=== PATIENT | female | born 1950 | race Asian ===

== ENCOUNTER 2017-03-07 17:49 | Emergency (ER) | payer BC ==
[~2017-03-07] VITALS: Ht 167.6 cm; Wt 163.3 kg
[2017-03-07 19:34] LABS: PLATELET COUNT 386 K/uL (152-353)
[2017-03-07 19:37] LABS: POTASSIUM 3.6 mmol/L (3.6-5.2); SODIUM 135 mmol/L (136-145)
[2017-03-07 23:18] VITALS: BP 173/84; TEMP 98.4
== END 2017-03-07 23:45 | disposition home or self-care (01) ==
LOC: ED 17:49
DX: R10.11 Right upper quadrant pain (principal)
CPT/HCPCS: 36415; 80053; 85027; 96374; 96375; 99284; J1885; J2405

== ENCOUNTER 2017-10-31 15:11 | Outpatient (CLI) | payer OTHER | END 2017-10-31 21:26 | disposition home or self-care (01) | LOC: RAD 15:11 | DX: R06.02 Shortness of breath (principal) ==

== ENCOUNTER 2017-11-27 08:58 | Outpatient (CLI) | payer OTHER | END 2017-11-27 21:31 | disposition home or self-care (01) | LOC: CT 08:58 | DX: R93.8 Abnormal findings on diagnostic imaging of other specified body structures (principal) | CPT/HCPCS: 36415; 82565; 84520; Q9963 ==

== ENCOUNTER 2019-04-13 11:37 | Outpatient (CLI) | payer OTHER ==
[2019-04-13 12:12] LABS: POTASSIUM 3.6 mmol/L (3.6-5.2)
[2019-04-13 13:03] LABS: PLATELET COUNT 407 K/uL (152-353)
== END 2019-04-13 19:35 | disposition home or self-care (01) ==
LOC: LABW 11:37
PROVIDERS: Family Medicine
DX: I10 Essential (primary) hypertension (principal); R60.0 Localized edema; R53.83 Other fatigue; E78.2 Mixed hyperlipidemia; E55.9 Vitamin D deficiency, unspecified
CPT/HCPCS: 36415; 80053; 80061; 82306; 83735; 84439; 84443; 85027; 86376

== ENCOUNTER 2019-08-26 12:32 | Outpatient (CLI) | payer OTHER ==
[2019-08-26 12:55] LABS: PLATELET COUNT 370 K/uL (152-353)
[2019-08-26 13:06] LABS: POTASSIUM 4.1 mmol/L (3.6-5.2)
== END 2019-08-26 19:18 | disposition home or self-care (01) ==
LOC: LAB 12:32
PROVIDERS: Family Medicine
DX: I10 Essential (primary) hypertension (principal); E78.2 Mixed hyperlipidemia; E55.9 Vitamin D deficiency, unspecified; I73.89 Other specified peripheral vascular diseases; R60.0 Localized edema
CPT/HCPCS: 80053; 80061; 82306; 83735; 85027

== ENCOUNTER 2019-12-08 09:04 | Outpatient (CLI) | payer OTHER ==
[2019-12-08 09:45] LABS: PLATELET COUNT 357 K/uL (152-353)
[2019-12-08 09:54] LABS: POTASSIUM 3.8 mmol/L (3.6-5.2)
== END 2019-12-08 20:23 | disposition home or self-care (01) ==
LOC: LAB 09:04
PROVIDERS: Family Medicine
DX: I10 Essential (primary) hypertension (principal); E78.2 Mixed hyperlipidemia; R60.0 Localized edema; R06.02 Shortness of breath; E55.9 Vitamin D deficiency, unspecified; R53.83 Other fatigue
CPT/HCPCS: 80053; 80061; 82306; 83735; 83880; 85027

== ENCOUNTER 2020-03-08 19:41 | Emergency (ER) | payer OTHER ==
[~2020-03-08] VITALS: Ht 162.6 cm; Wt 172.4 kg
[2020-03-08 20:36] LABS: PLATELET COUNT 397 K/uL (152-353)
[2020-03-08 20:40] LABS: POTASSIUM 4.3 mmol/L (3.6-5.2)
[2020-03-08 22:15] VITALS: BP 131/54; TEMP 98.2
== END 2020-03-08 22:15 | disposition home or self-care (01) ==
LOC: ED 19:41
DX: R10.84 Generalized abdominal pain (principal)
CPT/HCPCS: 80053; 81000; 82150; 82272; 83690; 85027; 86318; 99283; 99284

== ENCOUNTER 2020-06-06 14:14 | Outpatient (CLI) | payer OTHER | END 2020-06-06 20:57 | disposition home or self-care (01) | LOC: RAD 14:14 | PROVIDERS: ATTEND Internal Medicine Pulmonary Disease | DX: I50.9 Heart failure, unspecified (principal) ==

== ENCOUNTER 2020-10-28 09:50 | Emergency (ER) | payer OTHER ==
[~2020-10-28] VITALS: Ht 157.5 cm; Wt 144.7 kg
[2020-10-28 11:07] LABS: POTASSIUM 3.7 mmol/L (3.6-5.2)
[2020-10-28 11:08] LABS: PLATELET COUNT 351 K/uL (152-353)
[2020-10-28 11:37] LABS: PARTIAL THROMBOPLASTIN TIME 25.2 SECONDS (24.5-33.6)
[2020-10-28 12:15] VITALS: BP 151/89; TEMP 97.8
== END 2020-10-28 12:15 | disposition home or self-care (01) ==
LOC: ED 09:50
PROVIDERS: Emergency Medicine
DX: N93.8 Other specified abnormal uterine and vaginal bleeding (principal); I10 Essential (primary) hypertension; I50.9 Heart failure, unspecified
CPT/HCPCS: 80048; 85027; 85610; 85730; 99284

== ENCOUNTER 2021-01-13 09:43 | Outpatient (CLI) | payer OTHER ==
[2021-01-13 10:28] LABS: PLATELET COUNT 350 K/uL (152-353)
[2021-01-13 10:29] LABS: POTASSIUM 2.9 mmol/L (3.6-5.2)
== END 2021-01-13 21:02 | disposition home or self-care (01) ==
LOC: LABW 09:43
PROVIDERS: ATTEND Student in an Organized Health Care Education/Training Program
DX: N85.02 Endometrial intraepithelial neoplasia [EIN] (principal)
CPT/HCPCS: 36415; 80048; 85027

== ENCOUNTER 2021-01-28 15:56 | Inpatient (IN) | payer OTHER ==
[~2021-01-28] VITALS: Ht 157.5 cm; Wt 129.3 kg
[2021-01-28 15:59] VITALS: BP 148/78; TEMP 97
[2021-01-28 16:41] LABS: PLATELET COUNT 427 K/uL (152-353)
[2021-01-28 16:50] LABS: PARTIAL THROMBOPLASTIN TIME 28.1 SECONDS (24.5-33.6)
[2021-01-28 19:18] VITALS: BP 114/63; TEMP 97.6; Ht 157.5 cm; Wt 129.3 kg
[2021-01-28 19:59] VITALS: BP 102/55; TEMP 98.1
[2021-01-29] VITALS: BP 100/61; TEMP 98.6
[2021-01-29 04:11] VITALS: BP 93/53; TEMP 98.6
[2021-01-29 07:59] VITALS: BP 100/58; TEMP 98.2
[2021-01-29 11:59] VITALS: BP 120/67; TEMP 98.8
[2021-01-29 16:00] VITALS: BP 104/58; TEMP 98.2
[2021-01-29] MEDS ORDERED: CARAFATE1 GM PO (19:39)
[2021-01-29] MEDS ORDERED: SPIRONOLACT25 MG PO (19:40)
[2021-01-29] MEDS ORDERED: ONDA4TAB3 PO (19:40)
[2021-01-29] MEDS ORDERED: OXYC5TAB53 PO (19:41)
[2021-01-29] MEDS ORDERED: 904272561 PO (19:42)
[2021-01-29] MEDS ORDERED: TENORETIC PO (19:43)
[2021-01-29] MEDS ORDERED: DICYCLOMINE HYD10 MG PO (19:44)
[2021-01-29] MEDS ORDERED: PROPRANOLOL40 MG PO (19:47)
[2021-01-29] MEDS ORDERED: DOCU100C10 PO (19:48)
[2021-01-29] MEDS ORDERED: K-TABS10 MEQ PO (19:49)
[2021-01-29] MEDS ORDERED: ASA LOW DOSE81 MG PO (19:50)
[2021-01-29] MEDS ORDERED: FURO20TA67 PO (19:50)
[2021-01-29] MEDS ORDERED: LIPITOR20 MG PO (19:51)
[2021-01-29] MEDS ORDERED: PANTOPRAZOLE 40MG TA PO (19:51)
[2021-01-29 20:00] VITALS: BP 111/60; TEMP 98.8
[2021-01-29] MEDS ORDERED: BREO ELLIPTA 101 INH INH (20:17)
[2021-01-30] VITALS: BP 115/70; TEMP 99
[2021-01-30 03:57] VITALS: BP 89/57; TEMP 98.5
[2021-01-30 08:00] VITALS: BP 136/68; TEMP 98.2
[2021-01-30 12:00] VITALS: BP 121/54; TEMP 98.6
[2021-01-30 13:58] LABS: POTASSIUM 3.2 mmol/L (3.6-5.2)
[2021-01-30 14:05] LABS: PLATELET COUNT 347 K/uL (152-353)
[2021-01-30 16:00] VITALS: BP 107/65; TEMP 98.6
[2021-01-30 20:00] VITALS: BP 128/70; TEMP 98.9
[2021-01-31] VITALS (7 sets, daily range): BP systolic 92–122; BP diastolic 53–70; TEMP 97.5–99.1
[2021-01-31 05:54] LABS: PLATELET COUNT 315 K/uL (152-353)
[2021-02-01 03:51] VITALS: BP 118/69; TEMP 98.3
[2021-02-01 05:39] LABS: PLATELET COUNT 257 K/uL (152-353)
[2021-02-01 08:00] VITALS: BP 108/63; TEMP 98.4
[2021-02-01 08:50] LABS: POTASSIUM 3.8 mmol/L (3.6-5.2)
[2021-02-01 12:00] VITALS: BP 122/70; TEMP 98.9
== END 2021-02-01 12:30 | DRG 300 ==
LOC: ED 15:56 → MED/SURG 17:10
PROVIDERS: Hospitalist; Internal Medicine Endocrinology, Diabetes & Metabolism; ADMIT Internal Medicine; ATTEND Internal Medicine
DX: I83.12 Varicose veins of left lower extremity with inflammation (principal); N17.8 Other acute kidney failure; E46 Unspecified protein-calorie malnutrition; C79.9 Secondary malignant neoplasm of unspecified site; I13.0 Hypertensive heart and chronic kidney disease with heart failure and stage 1 through stage 4 chronic kidney disease, or unspecified chronic kidney disease; I83.11 Varicose veins of right lower extremity with inflammation; E87.6 Hypokalemia; I89.0 Lymphedema, not elsewhere classified; E78.49 Other hyperlipidemia; I25.10 Atherosclerotic heart disease of native coronary artery without angina pectoris; I73.89 Other specified peripheral vascular diseases; C55 Malignant neoplasm of uterus, part unspecified; E11.22 Type 2 diabetes mellitus with diabetic chronic kidney disease; N18.30 Chronic kidney disease, stage 3 unspecified
CPT/HCPCS: 36415; 51702; 80048; 80053; 81000; 82550; 83880; 84484; 85027; 85379; 85610; 85730; 87635; 93005; 96374; 96375; 99284; J1650; J1885; J1940; J2270; J2405; U0003